=== PATIENT | male | born 1990 | race Caucasian/White ===

== ENCOUNTER 2017-05-28 13:25 | Day surgery (SDC) | payer OTHER ==
[~2017-05-28] VITALS: Ht 185.4 cm; Wt 110.7 kg
[2017-05-28 14:14] VITALS: BP 116/65; PULSE 76; TEMP 97.5
[2017-05-28 14:50] VITALS: BP 116/65; PULSE 69; TEMP 97.8
[2017-05-28 15:05] VITALS: BP 137/53; PULSE 70
[2017-05-28 15:20] VITALS: BP 125/72; PULSE 61
== END 2017-05-28 15:35 | disposition home or self-care (01) ==
LOC: SDCO 13:25
DX: K64.1 Second degree hemorrhoids (principal); K92.1 Melena
CPT/HCPCS: J2250; J3010; J7030